=== PATIENT | female | born 2005 | race Caucasian/White ===

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

== ENCOUNTER 2025-03-20 14:17 | Emergency (ER) | payer BC, OTHER ==
[2025-03-20 15:05] LABS: BASOPHILS ABSOLUTE AUTO 0.03 K/uL (0.00-0.20); BASOPHILS PERCENT AUTO 0.3 % (0.0-1.0); EOSINOPHILS ABSOLUTE AUTO 0.19 K/uL (0.00-0.45); EOSINOPHILS PERCENT AUTO 1.6 % (0.0-6.0); HEMATOCRIT 34.7 % (37.0-47.0); HEMOGLOBIN 11.9 g/dL (12.0-16.0); IMMATURE GRAN ABSOLUTE AUTO 0.04 K/uL (0.00-0.05); IMMATURE GRAN PERCENT AUTO 0.3 % (0.0-0.4); LYMPHOCYTES ABSOLUTE AUTO 1.91 K/uL (1.00-4.80); LYMPHOCYTES PERCENT AUTO 16.1 % (24.0-44.0); MEAN CORPUSCULAR HEMOGLOBIN 29.5 pg (28.0-32.0); MEAN CORPUSCULAR HGB CONC 34.3 g/dL (32.0-36.0); MEAN CORPUSCULAR VOLUME 86.1 fL (83.0-99.0); MEAN PLATELET VOLUME 10.3 fL (9.4-12.3); MONOCYTES ABSOLUTE AUTO 1.23 K/uL (0.00-0.80); MONOCYTES PERCENT AUTO 10.4 % (0.0-8.0); NEUTROPHILS ABSOLUTE AUTO 8.47 K/uL (1.80-7.70); NEUTROPHILS PERCENT AUTO 71.3 % (41.0-71.0); PLATELET COUNT,PLT 223 K/uL (150-400); RED BLOOD CELL COUNT 4.03 M/uL (4.10-5.30); WHITE BLOOD CELL COUNT,WBC 11.87 K/uL (3.9-11.3)
[2025-03-20 15:55] LABS: A/G RATIO 0.6 (0.9-1.6); ALBUMIN 2.7 g/dL (3.4-5.0); BILIRUBIN TOTAL 0.1 mg/dL (0.2-1.0); CALCIUM 8.6 mg/dL (8.5-10.1); CARBON DIOXIDE,CO2 22.2 mmol/L (21.0-32.0); CREATININE 0.7 mg/dL (0.6-1.0); EST CRCL DRUG DOSING (CG) 115.36 mL/min; POTASSIUM,K 3.5 mmol/L (3.5-5.1); PROTEIN TOTAL,TP 7.1 g/dL (6.4-8.2)
[2025-03-20] MEDS: Sodium Chloride 0.9% 1,000 ML IV STA (16:23)
[2025-03-20 16:26] LABS: BILIRUBIN,URINE NEGATIVE (NEGATIVE); COLOR,URINE YELLOW; GLUCOSE,URINE NEGATIVE (NEGATIVE); KETONES,URINE NEGATIVE (NEGATIVE); LEUKOCYTE ESTERASE,URINE SMALL (NEGATIVE); NITRITE,URINE NEGATIVE (NEGATIVE); OCCULT BLOOD,URINE NEGATIVE (NEGATIVE); PROTEIN,URINE NEGATIVE (NEGATIVE); UROBILINOGEN,URINE 0.2 EU/dL (<2.0)
[2025-03-20 16:27] LABS: APPEARANCE,URINE HAZY
[2025-03-20 16:42] LABS: BACTERIA,URINE FEW (NEGATIVE); EPITHELIAL CELLS,URINE FEW (NONE-FEW); RBC,URINE 0-1 (0-2/HPF)
[2025-03-20] MEDS: Iopamidol 755 MG/ML 500 ML Multipack Bottle IVPUSH STA (17:21)
== END 2025-03-20 18:29 | disposition home or self-care (01) ==
LOC: MW.ED 14:17
DX: O99.891 Other specified diseases and conditions complicating pregnancy (principal); R06.00 Dyspnea, unspecified; Z88.0 Allergy status to penicillin; Z79.899 Other long term (current) drug therapy; Z3A.33 33 weeks gestation of pregnancy
CPT/HCPCS: 36415; 71275; 80053; 81001; 83880; 84484; 84702; 85025; 85379; 93005; 93970; 99285; J7030; Q9967; 99283

== ENCOUNTER 2025-05-02 21:12 | Inpatient (IN) | payer BC, OTHER ==
[2025-05-02] MEDS ORDERED: Misoprostol 25 MCG (1/4 of 100 MCG) Tab VAG PRN (22:36)
[2025-05-02] MEDS ORDERED: Water For Irrigation,Sterile 1,000 ML Container IRR PRN (22:36)
[2025-05-02] MEDS ORDERED: Sodium Chloride 0.9% 2.5 ML Syringe FLUSH PRN (22:36)
[2025-05-02] MEDS ORDERED: Carboprost Tromethamine 250 MCG/1 mL Vial IM PRN (22:36)
[2025-05-02] MEDS ORDERED: Sodium Chloride 0.9% 10 ML Syringe FLUSH PRN (22:36)
[2025-05-02] MEDS ORDERED: Terbutaline 1 MG/ML SDV SUBCUT PRN (22:36)
[2025-05-02] MEDS ORDERED: Oxytocin/0.9 % Sodium Chloride 30 UNIT/500 ML BAG IV SCH (22:45)
[2025-05-02 23:18] LABS: MEAN PLATELET VOLUME 10.5 fL (9.4-12.3); NRBC ABSOLUTE 0.00 K/uL (0.00-0.02); NRBC PERCENT 0.0 /100WBC (0.0-0.2); PLATELET COUNT,PLT 230 K/uL (150-400); RED BLOOD CELL COUNT 4.21 M/uL (4.10-5.30); WHITE BLOOD CELL COUNT,WBC 12.12 K/uL (3.9-11.3)
[2025-05-02 23:38] LABS: CREATININE,URINE RAND 146.0 mg/dL; PROTEIN CREATININE RATIO,URINE 0.1; PROTEIN,URINE RANDOM 15.0 mg/dL (<11.9)
[2025-05-02 23:41] LABS: A/G RATIO 0.6 (0.9-1.6); ALANINE AMINOTRANSFERASE,ALT 14.0 IU/L (14-63); ASPARTATE AMNIOTRANSFERASE,AST 10.0 IU/L (15-37); BILIRUBIN TOTAL 0.2 mg/dL (0.2-1.0); BLOOD UREA NITROGEN,BUN 8.0 mg/dL (7.0-18.0); CARBON DIOXIDE,CO2 20.7 mmol/L (21.0-32.0); CHLORIDE,CL 102.0 mmol/L (98-107); CREATININE 0.9 mg/dL (0.6-1.0); EST CRCL DRUG DOSING (CG) 86.1 mL/min; ESTIMATED GFR 94.0 mL/min (>60); GLUCOSE RANDOM 120.0 mg/dL (74-106); POTASSIUM,K 3.8 mmol/L (3.5-5.1); PROTEIN TOTAL,TP 7.1 g/dL (6.4-8.2); SODIUM,NA 136.0 mmol/L (136-145)
[2025-05-03] MEDS ORDERED: Sodium Chloride 0.9% 2.5 ML Syringe FLUSH PRN (00:23)
[2025-05-03] MEDS ORDERED: Labetalol 100 MG/20 ML MDV IVPUSH PRN (00:23)
[2025-05-03] MEDS ORDERED: Calcium Gluconate 10% 1 GM/10 ML SDV IV PRN (00:23)
[2025-05-03] MEDS ORDERED: Magnesium Sulfate 4 GM/100 mL 4 GM in Premix Bag 1 BAG IV ONE (00:23)
[2025-05-03] MEDS ORDERED: Sodium Chloride 0.9% 10 ML Syringe FLUSH PRN (00:23)
[2025-05-03] MEDS ORDERED: Magnesium Sulfate 20 GM/500mL 20 GM/500 ML BAG IV SCH (00:25)
[2025-05-03] MEDS: Misoprostol 25 MCG (1/4 of 100 MCG) Tab VAG PRN (01:28)
[2025-05-03] MEDS: Misoprostol 25 MCG (1/4 of 100 MCG) Tab PO ONE (01:28)
[2025-05-03] MEDS: Lactated Ringers 1,000 ML IV SCH (05:20)
[2025-05-03] MEDS: Butorphanol 1 MG/ML SDV IVPUSH PRN (07:18)
[2025-05-03] MEDS ORDERED: ePHEDrine 50 MG/ML SDV IVPUSH PRN (07:28)
[2025-05-03] MEDS ORDERED: dexmedeTOMIDine HCl 200 MCG/2 ML SDV EPIDUR SCH (07:30)
[2025-05-03] MEDS: Ropivacaine HCl/PF 400 MG in Premix Bag 1 BAG EPIDUR SCH (08:52)
[2025-05-03] MEDS: Oxytocin/0.9 % Sodium Chloride 30 UNIT/500 ML BAG IV SCH (09:40)
[2025-05-03] MEDS: Ondansetron 4 MG/2 ML SDV IVPUSH PRN (09:53)
[2025-05-03] MEDS ORDERED: Aluminum Hydroxide/Magnesium Hydroxide/Simethicone Susp 30 ML Cup PO PRN (19:11)
[2025-05-03 19:18] LABS: PH,UMBILICAL ARTERIAL 7.08 (7.18-7.38); PH,UMBILICAL VENOUS 7.16 (7.25-7.45)
[2025-05-03] MEDS: Lanolin 100% Cream 7 GM Tube TOP PRN (19:51)
[2025-05-03] MEDS: Benzocaine/Menthol 20%-0.5% Spray 78 GM Cannister TOP PRN (19:52)
[2025-05-03] MEDS: Witch Hazel Medicated Pads 40/Jar TOP PRN (19:52)
[2025-05-04 05:49] LABS: MEAN PLATELET VOLUME 10.4 fL (9.4-12.3); NRBC ABSOLUTE 0.00 K/uL (0.00-0.02); NRBC PERCENT 0.0 /100WBC (0.0-0.2); PLATELET COUNT,PLT 161 K/uL (150-400); RED BLOOD CELL COUNT 3.71 M/uL (4.10-5.30); WHITE BLOOD CELL COUNT,WBC 11.83 K/uL (3.9-11.3)
[2025-05-04 06:08] LABS: EOSINOPHILS ABSOLUTE MAN 0.12 K/uL (0.00-0.45); EOSINOPHILS PERCENT MAN 1 % (0-6); LYMPHOCYTES ABSOLUTE MAN 2.13 K/uL (1.00-4.80); LYMPHOCYTES PERCENT MAN 18 % (24-44); MONOCYTES ABSOLUTE MAN 1.30 K/uL (0.00-0.80); MONOCYTES PERCENT MAN 11 % (0-8); SEG NEUTROPHILS ABSOLUTE MAN 8.28 K/uL (1.80-7.70); SEG NEUTROPHILS PERCENT MAN 70 % (41-71)
== END 2025-05-04 19:00 | disposition home or self-care (01) | DRG 560 ==
LOC: MW.OBCHECK 21:12 → MW.OB 21:13 → MW.OBCHECK 22:46 → OBSVTOIN 05-03 19:11 → MW.OB 05-03 22:56
PROVIDERS: ADMIT Obstetrics & Gynecology; ATTEND Obstetrics & Gynecology
PROC: 10E0XZZ Delivery of Products of Conception, External Approach (ICD-10-PCS; principal; 2025-05-03)
PROC: 10907ZC Drainage of Amniotic Fluid, Therapeutic from Products of Conception, Via Natural or Artificial Opening (ICD-10-PCS; 2025-05-03)
PROC: 3E0P7VZ Introduction of Hormone into Female Reproductive, Via Natural or Artificial Opening (ICD-10-PCS; 2025-05-03)
PROC: 0HQ9XZZ Repair Perineum Skin, External Approach (ICD-10-PCS; 2025-05-03)
PROC: 0UQMXZZ Repair Vulva, External Approach (ICD-10-PCS; 2025-05-03)
PROC: 3E0R3BZ Introduction of Anesthetic Agent into Spinal Canal, Percutaneous Approach (ICD-10-PCS; 2025-05-03)
PROC: 00HU33Z Insertion of Infusion Device into Spinal Canal, Percutaneous Approach (ICD-10-PCS; 2025-05-03)
DX: O13.4 Gestational [pregnancy-induced] hypertension without significant proteinuria, complicating childbirth (principal); O36.8130 Decreased fetal movements, third trimester, not applicable or unspecified; Z37.0 Single live birth; O99.214 Obesity complicating childbirth; O76 Abnormality in fetal heart rate and rhythm complicating labor and delivery; O70.0 First degree perineal laceration during delivery; E66.01 Morbid (severe) obesity due to excess calories; O69.81X0 Labor and delivery complicated by cord around neck, without compression, not applicable or unspecified; Z3A.40 40 weeks gestation of pregnancy; Z88.0 Allergy status to penicillin
CPT/HCPCS: 00214; 01967; 36415; 51702; 59025; 59409; 76805; 76805-26; 76819; 76819-26; 80053; 82570; 82803; 84112; 84156; 85025; 85027; 86592; 86850; 86900; 86901; A9270-GY; J0595; J2003; J2405; J2590; J2795; J7120

== ENCOUNTER 2025-09-06 19:59 | Emergency (ER) | payer OTHER, BC ==
[2025-09-06] MEDS ORDERED: Sodium Chloride 0.9% 10 ML Syringe FLUSH PRN (20:23)
[2025-09-06] MEDS ORDERED: Sodium Chloride 0.9% 2.5 ML Syringe FLUSH PRN (20:23)
[2025-09-06] MEDS: Ketorolac 30 MG/ML SDV IVPUSH ONE (20:29)
[2025-09-06 20:32] LABS: BASOPHILS ABSOLUTE AUTO 0.02 K/uL (0.00-0.20); BASOPHILS PERCENT AUTO 0.2 % (0.0-1.0); EOSINOPHILS ABSOLUTE AUTO 0.04 K/uL (0.00-0.45); EOSINOPHILS PERCENT AUTO 0.3 % (0.0-6.0); IMMATURE GRAN ABSOLUTE AUTO 0.04 K/uL (0.00-0.05); IMMATURE GRAN PERCENT AUTO 0.3 % (0.0-0.4); LYMPHOCYTES ABSOLUTE AUTO 1.24 K/uL (1.00-4.80); LYMPHOCYTES PERCENT AUTO 10.1 % (24.0-44.0); MEAN PLATELET VOLUME 9.6 fL (9.4-12.3); MONOCYTES ABSOLUTE AUTO 0.89 K/uL (0.00-0.80); MONOCYTES PERCENT AUTO 7.3 % (0.0-8.0); NEUTROPHILS ABSOLUTE AUTO 10.03 K/uL (1.80-7.70); NEUTROPHILS PERCENT AUTO 81.8 % (41.0-71.0); NRBC ABSOLUTE 0.00 K/uL (0.00-0.02); NRBC PERCENT 0.0 /100WBC (0.0-0.2); PLATELET COUNT,PLT 195 K/uL (150-400); RED BLOOD CELL COUNT 4.37 M/uL (4.10-5.30); WHITE BLOOD CELL COUNT,WBC 12.26 K/uL (3.9-11.3)
[2025-09-06] MEDS: Ondansetron 4 MG/2 ML SDV IVPUSH ONE (20:37)
[2025-09-06 21:00] LABS: A/G RATIO 0.8 (0.9-1.6); ALANINE AMINOTRANSFERASE,ALT 27 IU/L (14-63); ASPARTATE AMNIOTRANSFERASE,AST 21 IU/L (15-37); BILIRUBIN TOTAL 0.5 mg/dL (0.2-1.0); BLOOD UREA NITROGEN,BUN 9 mg/dL (7.0-18.0); CARBON DIOXIDE,CO2 27.0 mmol/L (21.0-32.0); CHLORIDE,CL 100 mmol/L (98-107); CREATININE 0.9 mg/dL (0.6-1.0); ESTIMATED GFR 93 mL/min (>60); GLUCOSE RANDOM 100 mg/dL (74-106); POTASSIUM,K 4.1 mmol/L (3.5-5.1); PROTEIN TOTAL,TP 8.0 g/dL (6.4-8.2); SODIUM,NA 135 mmol/L (136-145)
[2025-09-06 21:25] LABS: LACTIC ACID 1.3 mmol/L (0.4-2.0)
== END 2025-09-06 22:01 | disposition home or self-care (01) ==
LOC: MW.ED 19:59
DX: O91.23 Nonpurulent mastitis associated with lactation (principal); E86.0 Dehydration; Z88.0 Allergy status to penicillin; Z88.1 Allergy status to other antibiotic agents; Z79.899 Other long term (current) drug therapy; Z75.3 Unavailability and inaccessibility of health-care facilities
CPT/HCPCS: 36415; 80053; 83605; 84703; 85025; 87040; 96361; 96374; 96375; 99283; A9270; J1885; J2405; J7030